=== PATIENT | female | born 1935 | race Hispanic/Latino ===

== ENCOUNTER 2017-02-27 11:25 | Emergency (ER) | payer BC, MEDICARE ==
[2017-02-27 11:26] VITALS: BMI 26.6
[2017-02-27 11:31] VITALS: TEMP 98.2
[2017-02-27] MEDS ORDERED: Tetanus/Diphtheria Toxoids 0.5 ml Syringe IM ONE (12:00)
[2017-02-27] MEDS ORDERED: Lidocaine 1%/Epinephrine 1:100000 30 ml vial INJ STA (12:02)
[2017-02-27] MEDS ORDERED: Lidocaine 2% w Epi 1:100,000 Inj IJ ONE (12:27)
--- NOTE | 2017-02-27 13:48 | CT ---
PROCEDURE: CT HEAD WITHOUT CONTRAST. HISTORY: HEAD TRAUMA S/P FALL COMPARISON: None available. TECHNIQUE: Axial computed tomography images were obtained through the head/brain without intravenous contrast. Radiation dose: Total exam DLP = 982.82 mGy-cm. This CT exam was performed using one or more of the following dose reduction techniques: Automated exposure control, adjustment of the mA and/or kV according to patient size, and/or use of iterative reconstruction technique. FINDINGS: HEMORRHAGE: No intracranial hemorrhage. BRAIN: Diffuse atrophy with prominence of the ventricles and sulci noted. No mass effect or edema. Scattered periventricular and subcortical white matter hypodensities, which are nonspecific, but often seen with chronic microvascular ischemic disease. Please note that MRI with diffusion imaging is more sensitive in the detection of acute ischemic event. VENTRICLES: No hydrocephalus. CALVARIUM: Unremarkable. PARANASAL SINUSES: Small fluid within the right sphenoid sinus. MASTOID AIR CELLS: Unremarkable as visualized. No inflammatory changes. OTHER FINDINGS: Large posterior scalp hematoma measuring approximately 1.6 x 7.0 cm. Subcutaneous emphysema and evidence of laceration evident at this level. More focal rounded heterogeneous region within the scalp hematoma measures approximately 1.2 x 1.4 cm on the left with evidence of fluid fluid level. IMPRESSION: Large posterior scalp hematoma measuring approximately 1.6 x 7.0 cm. Subcutaneous emphysema and evidence of laceration evident at this level. More focal rounded heterogeneous region within the scalp hematoma measures approximately 1.2 x 1.4 cm on the left with evidence of fluid fluid level. Generalized atrophy. Nonspecific white matter changes. Small fluid within the right sphenoid sinus ; correlate for sinusitis.
[2017-02-27] MEDS ORDERED: Bacitracin 500 Units/gm Oint Foilpak UD TOP ONE (14:32)
--- NOTE | 2017-02-27 14:32 | C.PDOC ---
History Of Present Illness 81 y/o female brought to ED via ambulance after patient tripped on a pipe in the sidewalk, and fell backwards, hitting the back of her head on the ground today. Pt sustained a laceration to the posterior aspect of the head. Denies LOC , dizziness, headache, neck pain, back pain, nausea, vomiting or visual changes. Pt is not up to date with Tetanus vaccination. Denies taking any blood thinners. - HPI Time Seen by Provider: 02/27/17 11:44 Chief Complaint (Nursing): Trauma History Per: Patient History/Exam Limitations: no limitations Onset/Duration Of Symptoms: Hrs Injury Occurred (Timing): Just Before Arrival Location Of Injury: Posterior: Head Additional History Per: Patient Past Medical History Reviewed: Historical Data, Nursing Documentation, Vital Signs Vital Signs: Last Vital Signs Temp 98.2 F 02/27/17 11:31 Pulse 91 H 02/27/17 14:50 Resp 18 02/27/17 14:50 BP 144/93 H 02/27/17 14:50 Pulse Ox 95 02/27/17 16:00 - Medical History PMH: HTN - [facility] Procedures OTHER SKIN & SUBQ I D (03/25/13) RADICAL EXCIS SKIN LES (03/25/13) SKIN REPAIR & PLASTY NEC (03/25/13) Family History: States: Unknown Family Hx - Social History Hx Alcohol Use: No Hx Substance Use: No Review Of Systems Except As Marked, All Systems Reviewed And Found Negative. Constitutional: Negative for: Fever, Chills Cardiovascular: Negative for: Chest Pain, Palpitations Respiratory: Negative for: Cough, Shortness of Breath Gastrointestinal: Negative for: Nausea, Vomiting, Abdominal Pain, Diarrhea Musculoskeletal: Negative for: Neck Pain, Back Pain Skin: Positive for: Other (laceration to posterior head) Neurological: Positive for: Other. Negative for: Weakness, Numbness, Headache, Dizziness Physical Exam - Physical Exam Appears: Non-toxic, No Acute Distress, Other (comfortable) Skin: Warm, Dry, No Rash Head: Atraumatic, Normacephalic, No Tenderness, Laceration (5cm of laceration to occipital scalp, with jagged edges at the inferior aspect, no foreign body, underlined hematoma) Eye(s): bilateral: Normal Inspection, PERRL, EOMI Oral Mucosa: Moist Neck: Normal ROM, No Midline Cervical Tenderness, No Paracervical Tenderness, Supple Chest: Symmetrical Cardiovascular: Rhythm Regular, No Murmur Respiratory: Normal Breath Sounds, No Rales, No Rhonchi, No Wheezing Gastrointestinal/Abdominal: Soft, No Tenderness Back: No CVA Tenderness, No Vertebral Tenderness, No Paraspinal Tenderness Extremity: Normal ROM, No Tenderness, No Pedal Edema, Capillary Refill (<2 sec.) , No Deformity, No Swelling (no swelling or tenderness to left elbow), Other ( abrasion to left elbow) Extremity: Bilateral: Atraumatic, Normal ROM Pulses: Left Radial: Normal, Right Radial: Normal Neurological/Psych: Oriented x3, Normal Speech, Normal Cognition, Normal Motor, Normal Sensation, No Other (no focal deficits) ED Course And Treatment O2 Sat by Pulse Oximetry: 95 (on RA) Pulse Ox Interpretation: Normal - Other Rad Left elbow x-ray X-Ray: Viewed By Me, Read By Radiologist Interpretation: Accession No. : [id number]. Patient Name / ID : JOSE LUIS HOBBS / [id number]. Exam Date : 02/27/2017 12:06:37 ( Approved ). Study Comment : Sex / Age : F / 81Y. Creator : YARED VALLEJO MD. Dictator : YARED VALLEJO MD. Sales Development Manager : County Program Technician : YARED VALLEJO MD. Approver2 : Report Date : 02/27/2017 15:42:11. My Comment : . PROCEDURE: Radiographs of the left elbow. HISTORY: left elbow inury s/p fall. COMPARISON: No prior. FINDINGS: BONES: Normal. No fracture. JOINTS: Normal. No osteoarthritis. SOFT TISSUES: Normal. JOINT EFFUSION: None. OTHER FINDINGS: None. IMPRESSION: Unremarkable radiographs of the left elbow. - CT Scan/US Head CT Other Rad Studies (CT/US): Read By Radiologist, Radiology Report Reviewed CT/US Interpretation: Accession No. : [id number]. Patient Name / ID : JOSE LUIS HOBBS / [id number]. Exam Date : 02/27/2017 13:01:31 ( Approved ). Study Comment : Sex / Age : F / 81Y. Creator : Radha Ybarra MD. Dictator : Sales Development Manager : County Program Technician : Radha Ybarra MD. Approver2 : Report Date : 02/27/2017 13:47:09. My Comment : . PROCEDURE: CT HEAD WITHOUT CONTRAST. HISTORY: HEAD TRAUMA S/P FALL. COMPARISON: None available. TECHNIQUE: Axial computed tomography images were obtained through the head/brain without intravenous contrast. Radiation dose: Total exam DLP = 982.82 mGy-cm. This CT exam was performed using one or more of the following dose reduction techniques: Automated exposure control, adjustment of the mA and/ or kV according to patient size, and/or use of iterative reconstruction technique. FINDINGS: HEMORRHAGE: No intracranial hemorrhage. BRAIN: Diffuse atrophy with prominence of the ventricles and sulci noted. No mass effect or edema. Scattered periventricular and subcortical white matter hypodensities, which are nonspecific, but often seen with chronic microvascular ischemic disease. Please note that MRI with diffusion imaging is more sensitive in the detection of acute ischemic event. VENTRICLES: No hydrocephalus. CALVARIUM: Unremarkable. PARANASAL SINUSES: Small fluid within the right sphenoid sinus. MASTOID AIR CELLS: Unremarkable as visualized. No inflammatory changes. OTHER FINDINGS: Large posterior scalp hematoma measuring approximately 1.6 x 7.0 cm. Subcutaneous emphysema and evidence of laceration evident at this level. More focal rounded heterogeneous region within the scalp hematoma measures approximately 1.2 x 1.4 cm on the left with evidence of fluid fluid level. IMPRESSION: Large posterior scalp hematoma measuring approximately 1.6 x 7.0 cm. Subcutaneous emphysema and evidence of laceration evident at this level. More focal rounded heterogeneous region within the scalp hematoma measures approximately 1.2 x 1.4 cm on the left with evidence of fluid fluid level. Generalized atrophy. Nonspecific white matter changes. Small fluid within the right sphenoid sinus ; correlate for sinusitis. Progress Note: Head CT, left elbow x-ray ordered and reviewed. Pt was given Motrin, and Tylenol for pain. Tetanus vaccination administered. Laceration was repaired. Wound was dressed with Bacitracin. Laceration - Laceration Repair 4CM Wound Length (In cm): 4CM SCALP Description Of Wound: Linear Wound Cleansed With: Sterile Saline Anesthesia: Lidocaine 1%, With Epi (4ML) Wound Examination: Irrigated With Saline, No FB With Wound Exploration Wound Closure: Story (11), Suture (3 - VICRYL 3.0 ) Suture Technique And Material Used: Interrupted Wound Complexity: Intermediate Disposition Counseled Patient/Family Regarding: Studies Performed, Diagnosis, Need For Followup, Rx Given - Disposition Referrals: Lizz Oconnell MD [Staff Provider] - Disposition: HOME/ ROUTINE Disposition Time: 14:35 Condition: STABLE Additional Instructions: FOLLOW UP WITH YOUR DOCTOR IN 1-2 DAYS STAPLE REMOVAL IN 7 DAYS RETURN TO ER IF YOU HAVE ANY CONCERNING SYMPTOMS Prescriptions: Acetaminophen [Tylenol 325mg tab] 650 mg PO Q6 PRN #30 tab PRN Reason: pain/fever Naproxen [Naprosyn Tab] 375 mg PO BID PRN #25 tab PRN Reason: pain Instructions: Laceration (ED), Head Injury (ED) Forms: [facility] (Lithuanian) Print Language: STATELESS - POA Present On Arrival: Falls Or Trauma - Clinical Impression Clinical Impression: Scalp laceration, Scalp hematoma, Closed head injury - Scribe Statement The provider has reviewed the documentation as recorded by the Jemimaibe Gerald Khan All medical record entries made by the Scribe were at my direction and personally dictated by me. I have reviewed the chart and agree that the record accurately reflects my personal performance of the history, physical exam, medical decision making, and the department course for this patient. I have also personally directed, reviewed, and agree with the discharge instructions and disposition.
[2017-02-27] MEDS ORDERED: Bacitracin 500 Units/gm Oint Foilpak UD ONE (14:41)
[2017-02-27 14:51] VITALS: BP 144/93; PULSE 91; RESP 18
[2017-02-27 15:41] VITALS: O2SAT 95
--- NOTE | 2017-02-27 15:43 | RAD ---
PROCEDURE: Radiographs of the left elbow. HISTORY: left elbow inury s/p fall COMPARISON: No prior. FINDINGS: BONES: Normal. No fracture. JOINTS: Normal. No osteoarthritis. SOFT TISSUES: Normal. JOINT EFFUSION: None. OTHER FINDINGS: None IMPRESSION: Unremarkable radiographs of the left elbow.
== END 2017-02-27 15:17 | disposition home or self-care (01) ==
LOC: C.ER 11:25
DX: S01.01XA Laceration without foreign body of scalp, initial encounter (principal); W01.0XXA Fall on same level from slipping, tripping and stumbling without subsequent striking against object, initial encounter; Y92.480 Sidewalk as the place of occurrence of the external cause

== ENCOUNTER 2017-03-05 09:19 | Emergency (ER) | payer MEDICARE ==
[2017-03-05 09:19] VITALS: BMI 26.6
[2017-03-05 09:30] VITALS: TEMP 97.9
[2017-03-05] MEDS ORDERED: Bacitracin 500 Units/gm Oint Foilpak UD ONE (10:10)
[2017-03-05 10:32] VITALS: BP 122/72; PULSE 75; RESP 18; O2SAT 98
--- NOTE | 2017-03-05 12:56 | C.PDOC ---
History Of Present Illness 81 yr old female presents to the ER for a wound check and possible staple removal. Patient reports she had the bill placed in her scalp 6 days ago. Denies active bleeding, drainage, vision changes, nausea, vomiting, neck pain, headache, weakness or numbness. Time Seen by Provider: 03/05/17 09:30 Chief Complaint (Nursing): Wound Check History Per: Patient History/Exam Limitations: no limitations Onset/Duration Of Symptoms: Days Ago (6) Current Symptoms Are (Timing): Still Present Past Medical History Reviewed: Historical Data, Nursing Documentation, Vital Signs Vital Signs: Last Vital Signs Temp 97.9 F 03/05/17 09:25 Pulse 75 03/05/17 10:31 Resp 18 03/05/17 10:31 BP 122/72 03/05/17 10:31 Pulse Ox 98 03/05/17 12:57 - Medical History PMH: HTN, Hypercholesterolemia - [facility] Procedures OTHER SKIN & SUBQ I D (03/25/13) RADICAL EXCIS SKIN LES (03/25/13) SKIN REPAIR & PLASTY NEC (03/25/13) Family History: States: No Known Family Hx - Social History Hx Alcohol Use: No Hx Substance Use: No - Immunization History Hx Tetanus Toxoid Vaccination: Yes Hx Influenza Vaccination: No Hx Pneumococcal Vaccination: No Review Of Systems Except As Marked, All Systems Reviewed And Found Negative. Eyes: Negative for: Vision Change Gastrointestinal: Negative for: Nausea, Vomiting Musculoskeletal: Negative for: Neck Pain Neurological: Negative for: Weakness, Numbness, Headache Physical Exam - Physical Exam Appears: Non-toxic, No Acute Distress Skin: Warm, Dry, Other (Wound on the scalp, covered in blood clots. Small hematoma noted. No drainage. ) Head: Atraumatic, Normacephalic Eye(s): bilateral: Normal Inspection, PERRL, EOMI Chest: Symmetrical, No Tenderness Cardiovascular: Rhythm Regular, No Murmur Respiratory: Normal Breath Sounds, No Rales, No Rhonchi, No Stridor, No Wheezing Neurological/Psych: Oriented x3, Normal Speech, Cerebellar Signs Gait: Steady ED Course And Treatment O2 Sat by Pulse Oximetry: 98 (RA) Pulse Ox Interpretation: Normal Progress Note: Patient instructed to retun to ED in 2 days to have bill removed. Disposition - Disposition Disposition: HOME/ ROUTINE Disposition Time: 10:00 Condition: GOOD Additional Instructions: Thank you for letting us take care of you today. Your provider was Dr. Ewing. You were treated for a wound check. The emergency medical care you received today was directed at your acute symptoms. If you were prescribed any medication, please fill it and take as directed. It may take several days for your symptoms to resolve. Return to the Emergency Department if your symptoms worsen, do not improve, or if you have any other problems. Please contact your doctor or call one of the physicians/clinics you have been referred to that are listed on the Patient Visit Information form that is included in your discharge packet. Bring any paperwork you were given at discharge with you along with any medications you are taking to your follow up visit. Our treatment cannot replace ongoing medical care by a primary care provider (PCP) outside of the emergency department. Thank you for allowing the [facility] team to be part of your care today. Follow up in the emergency room in 2 days for staple removal. Instructions: Staple Care (ED) - Clinical Impression Clinical Impression: Visit for wound check - Scribe Statement The provider has reviewed the documentation as recorded by the Elkin Jeronimo Provider Attestation: All medical record entries made by the Elkin were at my direction and personally dictated by me. I have reviewed the chart and agree that the record accurately reflects my personal performance of the history, physical exam, medical decision making, and the department course for this patient. I have also personally directed, reviewed, and agree with the discharge instructions and disposition.
== END 2017-03-05 10:32 | disposition home or self-care (01) ==
LOC: C.ER 09:19
DX: Z51.89 Encounter for other specified aftercare (principal)

== ENCOUNTER 2017-03-08 09:42 | Emergency (ER) | payer MEDICARE ==
[2017-03-08 09:42] VITALS: BMI 26.6
[2017-03-08 09:52] VITALS: BP 137/89; PULSE 85; RESP 16; TEMP 97.3; O2SAT 98
--- NOTE | 2017-03-08 13:36 | C.PDOC ---
History Of Present Illness 81 y/o female presents to ED for removal of bill to scalp applied on 02/27 s/ p tripping and [id number] on sidewalk. Patient denies active bleeding, new injury , headache or any other complaints at this time. Time Seen by Provider: 03/08/17 09:53 Chief Complaint (Nursing): Suture/Staple Removal History Per: Patient History/Exam Limitations: no limitations Onset/Duration Of Symptoms: Days Ago Current Symptoms Are (Timing): Still Present Past Medical History Reviewed: Historical Data, Nursing Documentation, Vital Signs Vital Signs: Last Vital Signs Temp 97.3 F L 03/08/17 09:50 Pulse 85 03/08/17 09:50 Resp 16 03/08/17 09:50 BP 137/89 03/08/17 09:50 Pulse Ox 98 03/08/17 13:40 - Medical History PMH: HTN, Hypercholesterolemia Surgical History: No Surg Hx - [facility] Procedures OTHER SKIN & SUBQ I D (03/25/13) RADICAL EXCIS SKIN LES (03/25/13) SKIN REPAIR & PLASTY NEC (03/25/13) Family History: States: No Known Family Hx - Social History Hx Alcohol Use: No Hx Substance Use: No - Immunization History Hx Tetanus Toxoid Vaccination: Yes Hx Influenza Vaccination: No Hx Pneumococcal Vaccination: No Review Of Systems Except As Marked, All Systems Reviewed And Found Negative. Constitutional: Negative for: Fever, Chills Eyes: Negative for: Vision Change Skin: Negative for: Rash Neurological: Negative for: Weakness, Numbness, Headache, Dizziness Physical Exam - Physical Exam Appears: Non-toxic, No Acute Distress Skin: Warm, Dry, No Rash Head: Normacephalic, Laceration (5cm healing lac to scalp with 11 bill applied) Eye(s): bilateral: Normal Inspection, PERRL, EOMI Oral Mucosa: Moist Neck: Normal ROM, Supple Extremity: Normal ROM, Capillary Refill (<2 seconds), No Deformity, No Swelling Pulses: Left Radial: Normal, Right Radial: Normal Neurological/Psych: Oriented x3, Normal Speech, Normal Cognition, Normal Motor, Normal Sensation ED Course And Treatment O2 Sat by Pulse Oximetry: 98 Progress Note: 11 bill removed from scalp, patient tolerated well. Patient discharged and advised to follow up with pmd Disposition - Disposition Disposition: HOME/ ROUTINE Disposition Time: 10:00 Condition: GOOD Additional Instructions: Thank you for letting us take care of you today. Your provider was Dr. Ewing. You were treated for staple removal. The emergency medical care you received today was directed at your acute symptoms. If you were prescribed any medication, please fill it and take as directed. It may take several days for your symptoms to resolve. Return to the Emergency Department if your symptoms worsen, do not improve, or if you have any other problems. Please contact your doctor or call one of the physicians/clinics you have been referred to that are listed on the Patient Visit Information form that is included in your discharge packet. Bring any paperwork you were given at discharge with you along with any medications you are taking to your follow up visit. Our treatment cannot replace ongoing medical care by a primary care provider (PCP) outside of the emergency department. Thank you for allowing the [facility] team to be part of your care today. Wash the area gently for the next couple of days. Return to the emergency room or your doctor if you have any concerns. Forms: [facility] (Nicaraguan) - Clinical Impression Clinical Impression: Removal of bill - Scribe Statement The provider has reviewed the documentation as recorded by the Scribe Rafael Ozuna All medical record entries made by the Elkin were at my direction and personally dictated by me. I have reviewed the chart and agree that the record accurately reflects my personal performance of the history, physical exam, medical decision making, and the department course for this patient. I have also personally directed, reviewed, and agree with the discharge instructions and disposition.
== END 2017-03-08 10:09 | disposition home or self-care (01) ==
LOC: C.ER 09:42
DX: Z48.02 Encounter for removal of sutures (principal)

== ENCOUNTER 2017-03-16 09:07 | Emergency (ER) | payer MEDICARE ==
[2017-03-16 09:07] VITALS: BMI 26.6
[2017-03-16 09:16] VITALS: TEMP 97.9
--- NOTE | 2017-03-16 09:36 | C.PDOC ---
History Of Present Illness 81 y/o female presents to ED with complaints of "I woke up with blood on the pillow" onset this morning. Patient was previously seen on 03/08 s/p staple remova; that was originally applied on 02/27. Patient denies pain, swelling or any other associated symptoms with wound since last ER evaluation. "I WOKE W BLOOD ON THE PILLOW" ONSET THIS MORNING. seen 03/08 s/p staple removal ORIGINALLY APPLIED on 02/27. PS HAS HAD NO PAIN, SWELLING OR OTHER ASSOC SX W WOUND SINCE LAST ER EVAL. DENIES OTHER ASSOC SX EXAM NAD HEENT HEALING POSTERIOR SCALP BRUISING, NONTEND. SKIN +OLD CLOTS EMBEDDED IN HAIR. NO ERYTHEMA, DC, ACTIVE BLEEDING. MDM ADVISED H2O2 FOR CLOT REMOVAL. AVOID EXCESSIVE TUGGING OR SCRUBBING TO AREA. Time Seen by Provider: 03/16/17 09:26 Chief Complaint (Nursing): Wound Check History Per: Patient History/Exam Limitations: no limitations Onset/Duration Of Symptoms: Days Ago Current Symptoms Are (Timing): Still Present Past Medical History Reviewed: Historical Data, Nursing Documentation, Vital Signs Vital Signs: Last Vital Signs Temp 97.9 F 03/16/17 09:09 Pulse 75 03/16/17 09:40 Resp 18 03/16/17 09:40 BP 146/78 03/16/17 09:40 Pulse Ox 97 03/16/17 09:41 - Medical History PMH: HTN, Hypercholesterolemia Surgical History: No Surg Hx - [facility] Procedures OTHER SKIN & SUBQ I D (03/25/13) RADICAL EXCIS SKIN LES (03/25/13) SKIN REPAIR & PLASTY NEC (03/25/13) Family History: States: No Known Family Hx - Social History Hx Alcohol Use: No Hx Substance Use: No - Immunization History Hx Tetanus Toxoid Vaccination: Yes Hx Influenza Vaccination: No Hx Pneumococcal Vaccination: No Review Of Systems Constitutional: Negative for: Fever, Chills Eyes: Negative for: Vision Change Skin: Negative for: Rash Neurological: Negative for: Weakness, Numbness, Headache, Dizziness Physical Exam - Physical Exam Appears: Non-toxic, No Acute Distress Skin: Warm, Dry, No Rash, Other (Old clots embedded in hair. No erythema, No discharge, No active bleeding) Head: No Tenderness, No Swelling, Other (Healing posterior scalp. Bruising. ) Eye(s): bilateral: Normal Inspection, EOMI Oral Mucosa: Moist Neck: Normal ROM, Supple Chest: Symmetrical Neurological/Psych: Oriented x3, Normal Speech, Normal Cognition, Normal Motor, Normal Sensation Gait: Steady ED Course And Treatment O2 Sat by Pulse Oximetry: 97 (RA) Pulse Ox Interpretation: Normal Medical Decision Making Medical Decision Making: Patient advised to use H2O2 for clot removal and avoid excessive tugging or scrubbing to area. Disposition Counseled Patient/Family Regarding: Diagnosis, Need For Followup - Disposition Referrals: YOUR,PMD [Other] Disposition: HOME/ ROUTINE Disposition Time: 09:36 Condition: IMPROVED Instructions: Chronic Wound Care (ED) Forms: [employer] (Arabic) - Clinical Impression Clinical Impression: Visit for wound check - Scribe Statement The provider has reviewed the documentation as recorded by the Scribalexandrea Ozuna All medical record entries made by the Jemimaibe were at my direction and personally dictated by me. I have reviewed the chart and agree that the record accurately reflects my personal performance of the history, physical exam, medical decision making, and the department course for this patient. I have also personally directed, reviewed, and agree with the discharge instructions and disposition.
[2017-03-16 09:41] VITALS: BP 146/78; PULSE 75; RESP 18
[2017-03-16 09:43] VITALS: O2SAT 97
== END 2017-03-16 09:41 | disposition home or self-care (01) ==
LOC: C.ER 09:07
DX: Z48.00 Encounter for change or removal of nonsurgical wound dressing (principal)

== ENCOUNTER 2018-05-16 12:08 | Inpatient (IN) | payer MEDICARE, OTHER ==
[2018-05-16 12:08] VITALS: BMI 26.6
[2018-05-16] MEDS ORDERED: Sodium Chloride 0.9% 1,000 ML IV STA (12:36)
[2018-05-16] MEDS ORDERED: Sodium Chloride 0.9% 1,000 ML ONE (12:48)
[2018-05-16 13:15] LABS: BASO # 0.1 K/uL (0.0-0.2); BASO % 0.5 % (0.0-2.0); EOS % 0.1 % (0.0-4.0); HEMOGLOBIN 14.4 g/dL (11.0-16.0); LYMPH # 0.8 K/uL (1.0-4.3); LYMPH % 7.5 % (20.0-40.0); MEAN CELL VOLUME 89.9 fL (81.0-99.0); MEAN CORPUSCULAR HEMOGLOBIN 30.5 pg (27.0-31.0); MEAN CORPUSCULAR HGB CONC 33.9 g/dL (33.0-37.0); MEAN PLATELET VOLUME 9.4 fL (7.2-11.7); MONO # 0.7 K/uL (0.0-0.8); NEUT # 9.6 K/uL (1.8-7.0); NEUT % 85.9 % (50.0-75.0); PLATELET COUNT 198 K/uL (130-400); RBC 4.73 Mil/uL (3.80-5.20); RED CELL DISTRIBUTION WIDTH 13.4 % (11.5-14.5); WHITE BLOOD COUNT 11.1 K/uL (4.8-10.8)
[2018-05-16 13:26] LABS: ALB/GLOB RATIO 1.3 (1.0-2.1); ALBUMIN 4.2 g/dL (3.5-5.0); CALCIUM 9.4 mg/dl (8.6-10.4)
[2018-05-16 13:49] LABS: EOSINOPHIL 1 % (0-4); LYMPHOCYTE 4 % (20-40); MONOCYTE 6 % (0-10); NEUTROPHIL 89 % (50-75); PLATELET ESTIMATE NORMAL (NORMAL); TOTAL CELLS COUNTED 100
[2018-05-16 14:03] LABS: SQUAMOUS EPITHIAL < 1 /hpf (0-5); URINE BACTERIA RARE (<OCC); URINE BILIRUBIN NEGATIVE (NEGATIVE); URINE BLOOD NEGATIVE (NEGATIVE); URINE CLARITY Clear (Clear); URINE COLOR Yellow (YELLOW); URINE GLUCOSE (UA) NORMAL (Normal); URINE LEUKOCYTE ESTERASE TRACE Leu/uL (Negative); URINE PROTEIN 2+ mg/dL (NEGATIVE); URINE UROBILINOGEN NORMAL mg/dL (0.2-1.0)
[2018-05-16] MEDS ORDERED: Iodixanol 320 MG/ML 100 ML BOTTLE IV ONE (14:31)
--- NOTE | 2018-05-16 14:53 | C.PDOC ---
History Of Present Illness 82 y/o female, with past surgical history of hernia repair, presents to the ER complaining of diffuse abdominal pain which has been present since last night. Patient describes the pain as cramping with gas. Patient reports bilious vo miting and increased burping. She notes that she has constipation. Denies having fever, chills, CP, SOB, back pain, dysuria, and hematuria. Time Seen by Provider: 05/16/18 12:26 Chief Complaint (Nursing): Abdominal Pain History Per: Patient History/Exam Limitations: no limitations Onset/Duration Of Symptoms: Days Current Symptoms Are (Timing): Still Present Severity: Moderate Past Medical History Reviewed: Historical Data, Nursing Documentation, Vital Signs Vital Signs: Last Vital Signs Temp 98 F 05/16/18 12:10 Pulse 113 H 05/16/18 12:10 Resp 18 05/16/18 12:10 BP 121/88 05/16/18 12:10 Pulse Ox 95 05/16/18 12:10 - Medical History PMH: HTN, Hypercholesterolemia, Hypothyroidism Surgical History: No Surg Hx - [facility] Procedures OTHER SKIN & SUBQ I D (03/25/13) RADICAL EXCIS SKIN LES (03/25/13) SKIN REPAIR & PLASTY NEC (03/25/13) Family History: States: No Known Family Hx - Social History Hx Alcohol Use: No Hx Substance Use: No - Immunization History Hx Tetanus Toxoid Vaccination: Yes Hx Influenza Vaccination: Yes Hx Pneumococcal Vaccination: No Review Of Systems Except As Marked, All Systems Reviewed And Found Negative. Constitutional: Negative for: Fever, Chills Cardiovascular: Negative for: Chest Pain Respiratory: Negative for: Shortness of Breath Gastrointestinal: Positive for: Vomiting, Abdominal Pain, Constipation Genitourinary: Negative for: Dysuria, Hematuria Musculoskeletal: Negative for: Back Pain Physical Exam - Physical Exam Additional Physical Exam Comments: Constitutional: No acute distress. Head: Normocephalic. Atraumatic. Eyes: PERRL. ENT: Moist mucous membranes. Neck: Supple. Cardiovascular: Regular rate. Radial pulse 2+ bilaterally. Chest: No tenderness. Respiratory: Clear to auscultation bilaterally. GI: Soft. Nontender. Nondistended. Back: No CVA tenderness. Musculoskeletal: No tenderness or swelling of extremities. Skin: No rash. Neurologic: Alert, no focal deficit. ED Course And Treatment - Laboratory Results Result Diagrams: 05/16/18 13:05 05/16/18 13:05 O2 Sat by Pulse Oximetry: 95 Medical Decision Making Medical Decision Making: Plan: --Labs --UA --CT-Abd & Pelv. --Zofran IV --IV Fluids CT-Abd & Pelv. Results IMPRESSION: Evidence of small-bowel obstruction as above. Complex appearing right adnexal cystic lesions presumed related to the ovary. Recommend pelvic ultrasound for further evaluation. Extensive diverticulosis, particularly the sigmoid colon. No CT evidence of acute diverticulitis. 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 Small perihepatic ascites. The gallbladder appears distended. Correlate clinically. Right upper quadrant ultrasound may be considered if indicated. Atrophic right kidney with severe hydronephrosis. Too small to characterize left renal hypodensities; statistically likely cysts. Additional findings as above. Emergent findings discussed with Dr. Abreu on 05/16/18 at 3:[address] Keenan accepts patient to hospitalist service. Dr. Khan surgical consult, residents evaluating patient at bedside. Disposition - Disposition Disposition: HOSPITALIZED Disposition Time: 16:06 Condition: GUARDED - Clinical Impression Clinical Impression: Small bowel obstruction - Scribe Statement The provider has reviewed the documentation as recorded by the Jemimaibalexandrea Hankins Provider Attestation: All medical record entries made by the Jeimmaibe were at my direction and personally dictated by me. I have reviewed the chart and agree that the record accurately reflects my personal performance of the history, physical exam, medical decision making, and the department course for this patient. I have also personally directed, reviewed, and agree with the discharge instructions and disposition.
[2018-05-16 15:25] VITALS: RESP 20
--- NOTE | 2018-05-16 16:09 | CT ---
Date of service: 05/16/2018 PROCEDURE: CT Abdomen and Pelvis with contrast HISTORY: abd pain, constipation, vomiting, h/o Sx COMPARISON: None available. TECHNIQUE: Contrast dose: 100 mL Visipaque 320 IV Radiation dose: Total exam DLP = 1032.34 mGy-cm. This CT exam was performed using one or more of the following dose reduction techniques: Automated exposure control, adjustment of the mA and/or kV according to patient size, and/or use of iterative reconstruction technique. FINDINGS: LOWER THORAX: Bibasilar atelectasis. No visible pleural effusion or pneumothorax. LIVER: Hypoattenuation of the liver compatible with hepatic steatosis. Small perihepatic ascites. GALLBLADDER AND BILE DUCTS: Distended. PANCREAS: Atrophy. SPLEEN: 11 mm probable splenule. Otherwise unremarkable. ADRENALS: Mild bilateral adrenal gland hypertrophy. KIDNEYS AND URETERS: Atrophic right kidney with severe hydronephrosis. Too small to characterize left renal hypodensities; statistically likely cysts. VASCULATURE: Bilobed aneurysmal dilatation of the infrarenal abdominal aorta measuring approximately 2.9 x 2.8 x 2.9 cm and 3.0 x 3.1 x 4.0 cm (AP by transverse by cc dimensions) more inferiorly. Atherosclerotic calcifications/mural plaque present. BOWEL: Stomach is nondistended. Lack of oral contrast limits evaluation for bowel pathology. Dilated small bowel loops within the left abdomen with distal decompressed small bowel loops; appearance consistent with small bowel obstruction.. Extensive diverticulosis particularly the sigmoid colon. No CT evidence of acute diverticulitis. APPENDIX: The appendix appears within normal limits of caliber. No secondary signs of acute appendicitis. PERITONEUM: No significant free fluid. No definite free air. LYMPH NODES: No bulky adenopathy identified. BLADDER: Unremarkable. REPRODUCTIVE: Uterus is present and appears atrophic. Complex right adnexal cysts presumed related to the ovary. Pessary. BONES: Osseous demineralization. Degenerative changes of the spine. Grade 1 retrolisthesis of L3 on L4. OTHER FINDINGS: Fat and fluid within a right inguinal hernia. Fat containing left inguinal hernia. IMPRESSION: Evidence of small-bowel obstruction as above. Complex appearing right adnexal cystic lesions presumed related to the ovary. Recommend pelvic ultrasound for further evaluation. Extensive diverticulosis, particularly the sigmoid colon. No CT evidence of acute diverticulitis. 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 Small perihepatic ascites. The gallbladder appears distended. Correlate clinically. Right upper quadrant ultrasound may be considered if indicated. Atrophic right kidney with severe hydronephrosis. Too small to characterize left renal hypodensities; statistically likely cysts. Additional findings as above. Emergent findings discussed with Dr. Abreu on 05/16/18 at 3:43 p.m.
--- NOTE | 2018-05-16 16:45 | CP.PCM.CON ---
History of Present Illness - History of Present Illness History of Present Illness: Surgery Consult note. Dr. Khan service 82yo F with PMHx of HTN, HLD, [place] in , Hypothyroidism here for evaluation of nausea and vomiting. Patient states that she last ate yesterday night, tuna and crackers. A few hours after, she felt nauseous and had two episodes of emesis, non-bilious non-bloody. She woke up this morning and again had one episode of nausea and vomiting. She denies any abdominal pain or discomfort. She denies any CP, SOB. No fevers or chills. She does state that she has been drinking water today after the episode of vomiting this morning and has not had any problems with tolerance. She has been passing gas. She normally has a BM every two to three days and is unsure when her last BM was but says it may have been yesterday. Denies any rectal bleeding or melena. In the ED, CT abd/pelvis performed with evidence of possible SBO. Surgery consult obtained. PMHx: HTN, HLD, [place] in , Hypothyroid PSHx: Right inguinal hernia. Right groin abscess I&D in 2012 Family Hx: non-contributory Social Hx: denies Tob. Denies ETOH. Denies illicit drugs NKDA Review of Systems - Review of Systems All systems: reviewed and no additional remarkable complaints except - Constitutional Constitutional: absent: Chills, Fever - EENT Eyes: absent: Blurred Vision Ears: absent: Ear Discharge Nose/Mouth/Throat: absent: Nasal Congestion - Cardiovascular Cardiovascular: absent: Chest Pain - Respiratory Respiratory: absent: Cough, Dyspnea - Gastrointestinal Gastrointestinal: Belching, Nausea, Vomiting. absent: Abdominal Pain, Diarrhea, Dyspepsia, Melena - Genitourinary Genitourinary: absent: Dysuria - Musculoskeletal Musculoskeletal: absent: Back Pain - Neurological Neurological: absent: Dizziness, Headaches Past Patient History - Infectious Disease Hx of Infectious Diseases: None - Past Social History Smoking Status: Never Smoked Alcohol: None Drugs: Denies - CARDIAC Hx Hypercholesterolemia: Yes Hx Hypertension: Yes - ENDOCRINE/METABOLIC Hx Hypothyroidism: Yes - PSYCHIATRIC Hx Substance Use: No - SURGICAL HISTORY Hx Angioplasty: Yes - ANESTHESIA Hx Anesthesia: Yes Hx Anesthesia Reactions: No Meds Allergies/Adverse Reactions: Allergies Allergy/AdvReac Type Severity Reaction Status Date / Time No Known Allergies Allergy Verified 10/17/18 12:45 Physical Exam - Constitutional Appears: Well, Non-toxic, No Acute Distress - Head Exam Head Exam: ATRAUMATIC, NORMAL INSPECTION, NORMOCEPHALIC - Eye Exam Eye Exam: EOMI, Normal appearance - ENT Exam ENT Exam: Mucous Membranes Moist - Respiratory Exam Respiratory Exam: NORMAL BREATHING PATTERN. absent: Accessory Muscle Use, Respiratory Distress - Cardiovascular Exam Cardiovascular Exam: absent: JVD - GI/Abdominal Exam GI & Abdominal Exam: Soft. absent: Distended, Firm, Guarding, Rebound, Rigid, Tenderness - Extremities Exam Extremities exam: Positive for: normal inspection. Negative for: calf tenderness - Neurological Exam Neurological exam: Alert, Oriented x3 - Psychiatric Exam Psychiatric exam: Normal Affect, Normal Mood - Skin Skin Exam: Dry, Intact, Normal Color, Warm Results - Vital Signs Recent Vital Signs: Last Vital Signs Temp 98.2 F 05/16/18 15:24 Pulse 82 05/16/18 15:24 Resp 20 05/16/18 15:24 BP 132/84 05/16/18 15:24 Pulse Ox 95 05/16/18 16:17 - Labs Result Diagrams: 05/16/18 13:05 05/16/18 13:05 Labs: Laboratory Results - last 24 hr 05/16/18 05/16/18 05/16/18 13:05 13:05 13:52 WBC 11.1 H D RBC 4.73 Hgb 14.4 Hct 42.5 MCV 89.9 MCH 30.5 MCHC 33.9 RDW 13.4 Plt Count 198 MPV 9.4 Neut % (Auto) 85.9 H Lymph % (Auto) 7.5 L [place] % (Auto) 6.0 Eos % (Auto) 0.1 Baso % (Auto) 0.5 Neut # (Auto) 9.6 H Lymph # (Auto) 0.8 L [place] # (Auto) 0.7 Eos # (Auto) 0.0 Baso # (Auto) 0.1 Neutrophils % (Manual) 89 H Lymphocytes % (Manual) 4 L Monocytes % (Manual) 6 Eosinophils % (Manual) 1 Platelet Estimate Normal RBC Morphology Normal Sodium 132 Potassium 4.2 Chloride 91 L Carbon Dioxide 29 Anion Gap 17 BUN 20 H Creatinine 1.2 Est GFR ( Amer) 52 Est GFR (Non-Af Amer) 43 Random Glucose 150 H Calcium 9.4 Total Bilirubin 1.0 AST 38 H ALT 46 Alkaline Phosphatase 76 Total Protein 7.6 Albumin 4.2 Globulin 3.4 Albumin/Globulin Ratio 1.3 Lipase 72 Urine Color Yellow Urine Clarity Clear Urine pH 6.0 Ur Specific [place] 1.009 Urine Protein 2+ H Urine Glucose (UA) Normal Urine Ketones Negative Urine Blood Negative Urine Nitrate Negative Urine Bilirubin Negative Urine Urobilinogen Normal Ur Leukocyte Esterase Trace Urine WBC (Auto) 3 Urine RBC (Auto) 1 Ur Squamous Epith Cells < 1 Urine Bacteria Rare Assessment & Plan - Assessment and Plan (Free Text) Assessment: 82yo F with possible SBO Plan: - NPO - IVF - Will need NGT for decompression if patient still has more episodes of nausea or vomiting - Glycerin supp for constipation Further recs as per Dr. Heather Bailey PGY2 surgery
[2018-05-16] MEDS: Sodium Chloride 0.9% 1,000 ML IV SCH (17:04)
--- NOTE | 2018-05-16 17:11 | CP.PCM.HP ---
<Lashay Bender - Last Filed: 05/16/18 19:14> History of Present Illness - History of Present Illness History of Present Illness: PGY-1 Lashay Bender, Denise&P for Dr. Keenan's service: Patient is an 82 yo female with a history of HTN, HLD, GERD, and [place] in 1992 who presents with vomiting and belching. Patient states that she started vomiting last night. She vomited a total of 4 times, last time this morning. It was non- bloody. She denies being around sick contacts or doing/eating anything unusual yesterday. She took Pepto-Bismol with minimal relief. She ate tuna and crackers after onset of vomiting but then subsequently vomited afterwards. Patient has not eaten since last night, and she did not take her medications this morning. Patient also complains of constipation. She states she usually does not have a BM daily, but her constipation has been somewhat worse over the last 2 days. She took Colace without relief. She also describes an acid feeling in her throat and the urge to belch. She is also passing a lot of gas. She denies chest pain, shortness of breath, abdominal pain, recent weight change. She has never had a colonoscopy. PMH: HTN HLD GERD [place] in 1992- angioplasty Hernia repair years ago Meds: Atorvastatin 40 mg PO daily Losartan 100 mg PO daily Amlodipine 5 mg PO daily Ativan 1 mg PO QHS All: NKA FH: Denies any history of cancer, heart disease, diabetes SH: Lives with son Occasional alcohol use Former smoker- approximately 35 pack years, quit 30 yrs ago Denies illicit drug use PMD: Anish Psych: Anaya Present on Admission - Present on Admission Any Indicators Present on Admission: No History of DVT/PE: No History of Uncontrolled Diabetes: No Urinary Catheter: No Decubitus Ulcer Present: No History Surgical Site Infection Following: None Review of Systems - Constitutional Constitutional: absent: Chills, Fever, Headache, Night Sweats, Weight Gain, Weight Loss - EENT Eyes: absent: Change in Vision Ears: absent: Decreased Hearing Nose/Mouth/Throat: absent: Nasal Congestion - Cardiovascular Cardiovascular: Pedal Edema (chronic). absent: Chest Pain, Diaphoresis, Dyspnea, Palpitations - Respiratory Respiratory: absent: Cough, Dyspnea Past Patient History - Infectious Disease Hx of Infectious Diseases: None - Tetanus Immunizations Tetanus Immunization: Unknown - Past Medical History & Family History Past Medical History?: Yes Past Family History: Reviewed and not pertinent - Past Social History Smoking Status: Former Smoker Chewing Tobacco Use: No Cigar Use: No Alcohol: Occasional Drugs: Denies Home Situation {Lives}: With Family (son) - CARDIAC Hx Cardiac Disorders: Yes Hx Heart Attack: Yes (1993, angioplasty) Hx Hypercholesterolemia: Yes Hx Hypertension: Yes - PULMONARY Hx Respiratory Disorders: No - NEUROLOGICAL Hx Neurological Disorder: No - HEENT Hx HEENT Problems: No - RENAL Hx Chronic Kidney Disease: No - ENDOCRINE/METABOLIC Hx Hypothyroidism: Yes - PSYCHIATRIC Hx Substance Use: No - SURGICAL HISTORY Hx Angioplasty: Yes - ANESTHESIA Hx Anesthesia: Yes Hx Anesthesia Reactions: No Meds Allergies/Adverse Reactions: Allergies Allergy/AdvReac Type Severity Reaction Status Date / Time No Known Allergies Allergy Verified 03/21/18 12:45 Physical Exam - Constitutional Appears: Non-toxic, No Acute Distress - Head Exam Head Exam: ATRAUMATIC, NORMAL INSPECTION - Eye Exam Eye Exam: EOMI, Normal appearance, PERRL - ENT Exam ENT Exam: Mucous Membranes Moist, Normal Exam - Neck Exam Neck exam: Positive for: Normal Inspection - Respiratory Exam Respiratory Exam: Clear to Auscultation Bilateral, NORMAL BREATHING PATTERN. absent: Accessory Muscle Use, Wheezes, Respiratory Distress - Cardiovascular Exam Cardiovascular Exam: REGULAR RHYTHM, +S1, +S2. absent: Systolic Murmur - GI/Abdominal Exam GI & Abdominal Exam: Normal Bowel Sounds, Soft, Tenderness (very mild epigastric). absent: Distended, Firm, Guarding, Mass, Rebound, Rigid - Rectal Exam Rectal Exam: Deferred - Extremities Exam Extremities exam: Positive for: normal capillary refill, pedal edema (1+ b/l), pedal pulses present. Negative for: tenderness - Back Exam Back exam: NORMAL INSPECTION. absent: CVA tenderness (L), CVA tenderness (R) - Neurological Exam Neurological exam: Alert, CN II-XII Intact, Oriented x3 - Psychiatric Exam Psychiatric exam: Normal Affect, Normal Mood - Skin Skin Exam: Dry, Intact, Normal Color, Warm Results - Vital Signs Recent Vital Signs: Last Vital Signs Temp 98.2 F 05/16/18 15:24 Pulse 82 05/16/18 15:24 Resp 20 05/16/18 15:24 BP 132/84 05/16/18 15:24 Pulse Ox 95 05/16/18 16:17 - Labs Result Diagrams: 05/16/18 13:05 05/16/18 13:05 Labs: Laboratory Results - last 24 hr 05/16/18 05/16/18 05/16/18 13:05 13:05 13:52 WBC 11.1 H D RBC 4.73 Hgb 14.4 Hct 42.5 MCV 89.9 MCH 30.5 MCHC 33.9 RDW 13.4 Plt Count 198 MPV 9.4 Neut % (Auto) 85.9 H Lymph % (Auto) 7.5 L [place] % (Auto) 6.0 Eos % (Auto) 0.1 Baso % (Auto) 0.5 Neut # (Auto) 9.6 H Lymph # (Auto) 0.8 L [place] # (Auto) 0.7 Eos # (Auto) 0.0 Baso # (Auto) 0.1 Neutrophils % (Manual) 89 H Lymphocytes % (Manual) 4 L Monocytes % (Manual) 6 Eosinophils % (Manual) 1 Platelet Estimate Normal RBC Morphology Normal Sodium 132 Potassium 4.2 Chloride 91 L Carbon Dioxide 29 Anion Gap 17 BUN 20 H Creatinine 1.2 Est GFR ( Amer) 52 Est GFR (Non-Af Amer) 43 Random Glucose 150 H Calcium 9.4 Total Bilirubin 1.0 AST 38 H ALT 46 Alkaline Phosphatase 76 Total Protein 7.6 Albumin 4.2 Globulin 3.4 Albumin/Globulin Ratio 1.3 Lipase 72 Urine Color Yellow Urine Clarity Clear Urine pH 6.0 Ur Specific [place] 1.009 Urine Protein 2+ H Urine Glucose (UA) Normal Urine Ketones Negative Urine Blood Negative Urine Nitrate Negative Urine Bilirubin Negative Urine Urobilinogen Normal Ur Leukocyte Esterase Trace Urine WBC (Auto) 3 Urine RBC (Auto) 1 Ur Squamous Epith Cells < 1 Urine Bacteria Rare Assessment & Plan - Assessment and Plan (Free Text) Assessment: Patient is an 82 yo female who presented with nonbloody vomiting x4. She is complaining of acid reflux and constipation. Questionable SBO on initial CT. Plan: Vomiting- r/o SBO - Afebrile - Mild leukocytosis (11.1) - Lipase 72 - CT A/P with IV contrast: Dialted loops of small bowel within L abdomen with distal decompressed small bowel loops consistent with SBO. Extensive diverticulosis but no acute diverticulitis. - CT A/P with PO contrast pening - EKG pending - SHEILA pending - NPO - Zofran 4 mg IV Q6H PRN - NS @ 100 mL/hr - Surgery consulted (Yuli Khan)- no NGT at this time Constipation - Pending CT with PO contrast - Consider enema if no SBO Ovarian cyst - CT A/P with IV contrast: Complex R adnexal cysts presumed related to the ovary - Pelvic u/s pending Hypertension - Monitor vitals Q4H - Hold losartan and amlodipine while NPO Hyperlipidemia - Hold atorvastatin while NPO GERD - Do not lay down for at least 30 minutes after eating - Elevate head of bed 30 degrees - Protonix 40 mg IV daily Anxiety - Ativan 0.5 mg IV TID PRN H/o myocardial infarction- angioplasty 1992 - SHEILA - EKG Ppx: VTE: SCDs GI: PTX 40 IV daily Code status: full code Case was discussed with attending, Dr. Keenan. <Jeffrey Keenan - Last Filed: 05/17/18 07:46> Results - Vital Signs Recent Vital Signs: Last Vital Signs Temp 98.9 F 05/16/18 23:15 Pulse 75 05/16/18 23:15 Resp 20 05/16/18 23:15 BP 151/87 H 05/16/18 23:15 Pulse Ox 97 05/16/18 23:15 - Labs Result Diagrams: 05/16/18 13:05 05/16/18 13:05 Labs: Laboratory Results - last 24 hr 05/16/18 05/16/18 05/16/18 13:05 13:05 13:52 WBC 11.1 H D RBC 4.73 Hgb 14.4 Hct 42.5 MCV 89.9 MCH 30.5 MCHC 33.9 RDW 13.4 Plt Count 198 MPV 9.4 Neut % (Auto) 85.9 H Lymph % (Auto) 7.5 L [place] % (Auto) 6.0 Eos % (Auto) 0.1 Baso % (Auto) 0.5 Neut # (Auto) 9.6 H Lymph # (Auto) 0.8 L [place] # (Auto) 0.7 Eos # (Auto) 0.0 Baso # (Auto) 0.1 Neutrophils % (Manual) 89 H Lymphocytes % (Manual) 4 L Monocytes % (Manual) 6 Eosinophils % (Manual) 1 Platelet Estimate Normal RBC Morphology Normal Sodium 132 Potassium 4.2 Chloride 91 L Carbon Dioxide 29 Anion Gap 17 BUN 20 H Creatinine 1.2 Est GFR ( Amer) 52 Est GFR (Non-Af Amer) 43 Random Glucose 150 H Calcium 9.4 Total Bilirubin 1.0 AST 38 H ALT 46 Alkaline Phosphatase 76 Total Creatine Kinase CK-MB (Mass) Troponin I Total Protein 7.6 Albumin 4.2 Globulin 3.4 Albumin/Globulin Ratio 1.3 Lipase 72 Urine Color Yellow Urine Clarity Clear Urine pH 6.0 Ur Specific [place] 1.009 Urine Protein 2+ H Urine Glucose (UA) Normal Urine Ketones Negative Urine Blood Negative Urine Nitrate Negative Urine Bilirubin Negative Urine Urobilinogen Normal Ur Leukocyte Esterase Trace Urine WBC (Auto) 3 Urine RBC (Auto) 1 Ur Squamous Epith Cells < 1 Urine Bacteria Rare 05/16/18 22:32 WBC RBC Hgb Hct MCV MCH MCHC RDW Plt Count MPV Neut % (Auto) Lymph % (Auto) [place] % (Auto) Eos % (Auto) Baso % (Auto) Neut # (Auto) Lymph # (Auto) [place] # (Auto) Eos # (Auto) Baso # (Auto) Neutrophils % (Manual) Lymphocytes % (Manual) Monocytes % (Manual) Eosinophils % (Manual) Platelet Estimate RBC Morphology Sodium Potassium Chloride Carbon Dioxide Anion Gap BUN Creatinine Est GFR ( Amer) Est GFR (Non-Af Amer) Random Glucose Calcium Total Bilirubin AST ALT Alkaline Phosphatase Total Creatine Kinase 49 CK-MB (Mass) 1.48 Troponin I < 0.0120 Total Protein Albumin Globulin Albumin/Globulin Ratio Lipase Urine Color Urine Clarity Urine pH Ur Specific [place] Urine Protein Urine Glucose (UA) Urine Ketones Urine Blood Urine Nitrate Urine Bilirubin Urine Urobilinogen Ur Leukocyte Esterase Urine WBC (Auto) Urine RBC (Auto) Ur Squamous Epith Cells Urine Bacteria Attending/Attestation - Attestation I have personally seen and examined this patient.: Yes I have fully participated in the care of the patient.: Yes I have reviewed all pertinent clinical information: Yes Notes (Text): 05/17/18 07:40 Medical attending: Patient was seen and examined by me. Agree with the above note by the resident. I saw the patient last night at about 8pm with the medical claims assistant while patient was in the ER. The patient was with family member at bedside and participated with discussion, patient was ok with family at bedside. The intial CT scan suggested that she had an SBO and was evaluated by surgery team before we arrived. There was some question with micheles if she really had an SBO or not since she appeared very comfortable. She reported she did not come in because of pain, but because of nausea, bloating, and constipation. She remarks that she had not had a BM in a few days The first CT scan showed a lot of stool retention. On exam she is not guarding, no rebound. We repeated CT with PO contrast and this confirmed there was an SBO. She later had a BM overnight with the help of enema. She is currently NPO and IVF. She does not take any pain medication which may cause constipation and slow GI motility She also very firmly does not want to have colonscopy or EGD. She has never had one she says and does not plan on getting one any time soon she says Patient will be monitored in case there are any changes. Jeffrey Keenan
[2018-05-16] MEDS ORDERED: Sodium Chloride 0.9% 1,000 ML IV SCH (18:30)
[2018-05-16] MEDS ORDERED: Iohexol 240 (50 ml) PO ONE (19:15)
[2018-05-17 00:09] LABS: CK-MB 1.48 ng/mL (0.0-3.38)
[2018-05-17] MEDS: Sodium Chloride 0.9% 1,000 ML IV SCH ×2 (02:53→12:30)
[2018-05-17 08:04] LABS: BASO % 0.6 % (0.0-2.0); EOS # 0.1 K/uL (0.0-0.7); EOS % 0.7 % (0.0-4.0); LYMPH # 1.4 K/uL (1.0-4.3); LYMPH % 17.8 % (20.0-40.0); MEAN CELL VOLUME 91.8 fL (81.0-99.0); MEAN CORPUSCULAR HEMOGLOBIN 31.8 pg (27.0-31.0); MEAN CORPUSCULAR HGB CONC 34.7 g/dL (33.0-37.0); MEAN PLATELET VOLUME 8.8 fL (7.2-11.7); MONO # 0.7 K/uL (0.0-0.8); MONO % 8.7 % (0.0-10.0); NEUT # 5.7 K/uL (1.8-7.0); NEUT % 72.2 % (50.0-75.0); RBC 3.82 Mil/uL (3.80-5.20); RED CELL DISTRIBUTION WIDTH 13.4 % (11.5-14.5); WHITE BLOOD COUNT 7.9 K/uL (4.8-10.8)
[2018-05-17 08:07] LABS: HEMOGLOBIN 12.2 g/dL (11.0-16.0)
[2018-05-17 08:20] LABS: ALB/GLOB RATIO 1.1 (1.0-2.1); ALBUMIN 3.1 g/dL (3.5-5.0); BLOOD UREA NITROGEN 13 mg/dL (7-17); CALCIUM 8.2 mg/dl (8.6-10.4); GFR NON-AFRICAN AMERICAN 60
[2018-05-17 08:21] LABS: ALT/SGPT 44 U/L (9-52); AST/SGOT 26 U/L (14-36)
[2018-05-17] MEDS ORDERED: POLYETHYLENE GLYCOL 3350 17 GM/Dose PACKET PO ONE ×2 (10:45→14:00)
--- NOTE | 2018-05-17 10:50 | CARD ---
APPROVED REPORT Date of service: 05/16/2018 EKG Measurement Heart [id number] <Conclusion> Normal sinus rhythm Left axis deviation Incomplete right bundle branch block Cannot rule out Anteroseptal infarct, age undetermined Abnormal ECG
--- NOTE | 2018-05-17 12:06 | US ---
Pelvic ultrasound History: Ovarian cyst. Comparison: None available. Technique: Real-time sonography was performed through the pelvis utilizing transabdominal technique. Findings: Uterus: 5.6 x 2.7 x 4.5 centimeters. Heterogeneous echotexture. Anteverted. Thickened and heterogeneous endometrium measuring up to 7.7 millimeters. No free fluid in the pelvic cul-de-sac. Right ovary: 6.5 x 4.3 x 5.6 centimeters. Normal flow. Complex multi septated and nodular right ovarian cyst measuring 4.9 x 4.2 x 4.7 centimeters. Left ovary: Not well visualized. Please note the patient refused transvaginal study. Impression: Somewhat limited study. Patient refused transvaginal technique. Complex multiseptated nodular and irregular shaped right ovarian cyst measuring 4.9 x 4.2 x 4.7 centimeters. Continued interval follow-up of this cyst and or correlation with pelvic MRI may be helpful if clinically indicated. Clinical correlation. Left ovary not well visualized. Thickened and heterogeneous endometrium measuring up to 7.7 millimeters. Clinical correlation.
--- NOTE | 2018-05-17 13:58 | CT ---
PROCEDURE: CT Abdomen and Pelvis without IV contrast. HISTORY: r/o SBO COMPARISON: CT abdomen and pelvis with IV contrast performed 05/16/18 TECHNIQUE: Contiguous axial images of the abdomen and pelvis. Oral contrast was administered. No IV contrast given. Coronal and Sagittal reformats generated and reviewed. Radiation dose: Total exam DLP = 886.94 mGy-cm. This CT exam was performed using one or more of the following dose reduction techniques: Automated exposure control, adjustment of the mA and/or kV according to patient size, and/or use of iterative reconstruction technique. FINDINGS: There is limited evaluation of the solid organs without the administration of IV contrast. LOWER THORAX: Bibasilar atelectasis. No visible pleural effusion or pneumothorax. Visualized portions of the heart appear within normal limits of size. LIVER: Hypoattenuation of the liver compatible with hepatic steatosis. GALLBLADDER AND BILE DUCTS: Unremarkable. PANCREAS: Atrophy. SPLEEN: 10 mm probable splenule. Otherwise unremarkable. ADRENALS: Bilateral adrenal gland hypertrophy. KIDNEYS AND URETERS: Stable appearance with numerous cysts/hydronephrosis of the right kidney. Right renal atrophy. Several small cortical cysts, left kidney. Nonobstructing 2 mm left renal calculus. Retained contrast left renal collecting system. BLADDER: Stable. REPRODUCTIVE: Atrophic uterus. Pessary. Complex right adnexal cyst, presumably ovarian. APPENDIX: No secondary signs of acute appendicitis. BOWEL: The stomach is nondistended. Dilated small bowel loops predominantly involving small bowel in the right lower quadrant with suspected transition point at the terminal ileum. Oral contrast is not seen within the large bowel. Appearance suspicious for small bowel obstruction. Diverticulosis without CT evidence of acute diverticulitis. PERITONEUM: No significant pelvic free fluid. No definite free air. LYMPH NODES: No bulky lymphadenopathy identified. 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 Atherosclerotic calcifications/mural plaque. BONES: Degenerative changes of the spine. OTHER FINDINGS: Small bilateral fat containing inguinal hernias. IMPRESSION: Findings consistent with small bowel obstruction as above. Additional findings as above. Preliminary impression was provided by [employer].
[2018-05-17 16:02] VITALS: BP 112/67; PULSE 64; TEMP 98; O2SAT 97
--- NOTE | 2018-05-17 16:54 | CP.PCM.DIS ---
<Lashay Bender - Last Filed: 05/17/18 16:50> Provider - Provider Date of Admission: 05/16/18 17:01 Attending physician: Jeffrey Keenan DO Primary care physician: Anish ] Consults: 05/16/18 16:02 General Surgery Consult Stat Comment: Consulting Provider: Yuli Khan Consulting Physician: Yuli Khan Reason for Consult: SBO Time Spent in preparation of Discharge (in minutes): 45 Diagnosis - Discharge Diagnosis (1) Vomiting Status: Resolved Priority: High (2) Constipation Status: Chronic Priority: High (3) SBO (small bowel obstruction) Status: Acute Priority: High Hospital Course - Lab Results Lab Results: Micro Results 05/16/18 13:52 Urine Urine Culture - Final No Growth (<1,000 CFU/ML) Most Recent Lab Values WBC 7.9 K/uL (4.8-10.8) 05/17/18 07:52 RBC 3.82 Mil/uL (3.80-5.20) 05/17/18 07:52 Hgb 12.2 g/dL (11.0-16.0) D 05/17/18 07:52 Hct 35.1 % (34.0-47.0) 05/17/18 07:52 MCV 91.8 fL (81.0-99.0) 05/17/18 07:52 MCH 31.8 pg (27.0-31.0) H 05/17/18 07:52 MCHC 34.7 g/dL (33.0-37.0) 05/17/18 07:52 RDW 13.4 % (11.5-14.5) 05/17/18 07:52 Plt Count 167 K/uL (130-400) 05/17/18 07:52 MPV 8.8 fL (7.2-11.7) 05/17/18 07:52 Neut % (Auto) 72.2 % (50.0-75.0) 05/17/18 07:52 Lymph % (Auto) 17.8 % (20.0-40.0) L 05/17/18 07:52 Braxton % (Auto) 8.7 % (0.0-10.0) 05/17/18 07:52 Eos % (Auto) 0.7 % (0.0-4.0) 05/17/18 07:52 Baso % (Auto) 0.6 % (0.0-2.0) 05/17/18 07:52 Neut # (Auto) 5.7 K/uL (1.8-7.0) 05/17/18 07:52 Lymph # (Auto) 1.4 K/uL (1.0-4.3) 05/17/18 07:52 Braxton # (Auto) 0.7 K/uL (0.0-0.8) 05/17/18 07:52 Eos # (Auto) 0.1 K/uL (0.0-0.7) 05/17/18 07:52 Baso # (Auto) 0.0 K/uL (0.0-0.2) 05/17/18 07:52 Neutrophils % (Manual) 89 % (50-75) H 05/16/18 13:05 Lymphocytes % (Manual) 4 % (20-40) L 05/16/18 13:05 Monocytes % (Manual) 6 % (0-10) 05/16/18 13:05 Eosinophils % (Manual) 1 % (0-4) 05/16/18 13:05 Platelet Estimate Normal (NORMAL) 05/16/18 13:05 RBC Morphology Normal 05/16/18 13:05 Sodium 131 mmol/L (132-148) L 05/17/18 07:52 Potassium 4.1 mmol/L (3.6-5.2) 05/17/18 07:52 Chloride 99 mmol/L (98-107) 05/17/18 07:52 Carbon Dioxide 28 mmol/L (22-30) 05/17/18 07:52 Anion Gap 9 (10-20) L 05/17/18 07:52 BUN 13 mg/dL (7-17) 05/17/18 07:52 Creatinine 0.9 mg/dL (0.7-1.2) 05/17/18 07:52 Est GFR ( Amer) > 60 05/17/18 07:52 Est GFR (Non-Af Amer) 60 05/17/18 07:52 Random Glucose 104 mg/dL (65-105) 05/17/18 07:52 Calcium 8.2 mg/dl (8.6-10.4) L 05/17/18 07:52 Phosphorus 2.9 mg/dL (2.5-4.5) 05/17/18 07:52 Magnesium 1.9 mg/dL (1.6-2.3) 05/17/18 07:52 Total Bilirubin 0.9 mg/dL (0.2-1.3) 05/17/18 07:52 AST 26 U/L (14-36) 05/17/18 07:52 ALT 44 U/L (9-52) 05/17/18 07:52 Alkaline Phosphatase 58 U/L (38-126) 05/17/18 07:52 Total Creatine Kinase 49 U/L (30-135) 05/16/18 22:32 CK-MB (Mass) 1.48 ng/mL (0.0-3.38) 05/16/18 22:32 Troponin I < 0.0120 ng/mL (0.00-0.120) 05/16/18 22:32 Total Protein 5.8 g/dL (6.3-8.3) L 05/17/18 07:52 Albumin 3.1 g/dL (3.5-5.0) L D 05/17/18 07:52 Globulin 2.7 gm/dL (2.2-3.9) 05/17/18 07:52 Albumin/Globulin Ratio 1.1 (1.0-2.1) 05/17/18 07:52 Lipase 72 U/L (23-300) 05/16/18 13:05 Urine Color Yellow (YELLOW) 05/16/18 13:52 Urine Clarity Clear (Clear) 05/16/18 13:52 Urine pH 6.0 (5.0-8.0) 05/16/18 13:52 Ur Specific [place] 1.009 (1.003-1.030) 05/16/18 13:52 Urine Protein 2+ mg/dL (NEGATIVE) H 05/16/18 13:52 Urine Glucose (UA) Normal mg/dL (Normal) 05/16/18 13:52 Urine Ketones Negative mg/dL (NEGATIVE) 05/16/18 13:52 Urine Blood Negative (NEGATIVE) 05/16/18 13:52 Urine Nitrate Negative (NEGATIVE) 05/16/18 13:52 Urine Bilirubin Negative (NEGATIVE) 12/12/18 13:52 Urine Urobilinogen Normal mg/dL (0.2-1.0) 05/16/18 13:52 Ur Leukocyte Esterase Trace Morteza/uL (Negative) 05/16/18 13:52 Urine WBC (Auto) 3 /hpf (0-5) 05/16/18 13:52 Urine RBC (Auto) 1 /hpf (0-3) 05/16/18 13:52 Ur Squamous Epith Cells < 1 /hpf (0-5) 05/16/18 13:52 Urine Bacteria Rare (<OCC) 05/16/18 13:52 - Hospital Course Hospital Course: Patient is an 82 yo female with a history of HTN, HLD, GERD, and MS in 1992 who presents with vomiting and belching. Patient states that she started vomiting last night. She vomited a total of 4 times, last time this morning. It was non-bloody. She denies being around sick contacts or doing/eating anything unusual yesterday. She took Pepto-Bismol with minimal relief. She ate tuna and crackers after onset of vomiting but then subsequently vomited afterwards. Patient has not eaten since last night, and she did not take her medications this morning. Patient also complains of constipation. She states she usually does not have a BM daily, but her constipation has been somewhat worse over the last 2 days. She took Colace without relief. She also describes an acid feeling in her throat and the urge to belch. She is also passing a lot of gas. She denies chest pain, shortness of breath, abdominal pain, recent weight change. She has never had a colonoscopy. Small SBO was seen on CT. Her abdomen was benign. Surgery saw patient and did not think she needed an NGT. She was given IVF. Patient was given Miralax and had a BM. Patient did not vomit during her whole hospitalization. She was tolerating a regular diet PO. She did not want a colonoscopy. She was treated with Protonix for her GERD. Upon discharge, patient's vitals were stable. She did not vomit for >36 hours. She had a large BM. Discharge Exam - Head Exam Head Exam: ATRAUMATIC, NORMAL INSPECTION, NORMOCEPHALIC - Additional Findings Additional findings: - Constitutional Appears: Non-toxic, No Acute Distress - Head Exam Head Exam: ATRAUMATIC, NORMAL INSPECTION - Eye Exam Eye Exam: EOMI, Normal appearance, PERRL - ENT Exam ENT Exam: Mucous Membranes Moist, Normal Exam - Neck Exam Neck exam: Positive for: Normal Inspection - Respiratory Exam Respiratory Exam: Clear to Auscultation Bilateral, NORMAL BREATHING PATTERN. absent: Accessory Muscle Use, Wheezes, Respiratory Distress - Cardiovascular Exam Cardiovascular Exam: REGULAR RHYTHM, +S1, +S2. absent: Systolic Murmur - GI/Abdominal Exam GI & Abdominal Exam: Normal Bowel Sounds, Soft, Tenderness (very mild epigastric). absent: Distended, Firm, Guarding, Mass, Rebound, Rigid - Rectal Exam Rectal Exam: Deferred - Extremities Exam Extremities exam: Positive for: normal capillary refill, pedal edema (1+ b/l), pedal pulses present. Negative for: tenderness - Back Exam Back exam: NORMAL INSPECTION. absent: CVA tenderness (L), CVA tenderness (R) - Neurological Exam Neurological exam: Alert, CN II-XII Intact, Oriented x3 - Psychiatric Exam Psychiatric exam: Normal Affect, Normal Mood - Skin Skin Exam: Dry, Intact, Normal Color, Warm Discharge Plan - Discharge Medications Prescriptions: Pantoprazole [Protonix] 40 mg PO DAILY #30 ect RX: Polyethylene Glycol 3350 [Miralax] 17 gm PO DAILY #30 packet RX: Simethicone [Mylicon Chew Tab] 80 mg PO DAILY #30 ctb - Follow Up Plan Condition: IMPROVED Disposition: HOME/ ROUTINE Patient education suggested?: Yes Instructions: Polyethylene Glycol 3350, Heart Healthy Diet, Small Bowel Obstruction (DC), Pantoprazole, Simethicone Additional Instructions: Please follow-up with your primary care physician, Dr. Oconnell, within 3-5 days of discharge. We recommend a colonoscopy as an outpatient, which Dr. Oconnell could set-up for you. Increase fiber in your diet. You may take Simethicone for gas. You may take pantoprazole 40 mg daily fro acid reflux. You may take Miralax for constipation. All of these medications can be over the counter. If symptoms recur, please return to the nearest emergency room. Referrals: Lizz Oconnell MD [Staff Provider] - <Jeffrey Keenan - Last Filed: 05/17/18 18:10> Provider - Provider Date of Admission: 05/16/18 17:01 Attending physician: Jeffrey Keenan DO Consults: 05/16/18 16:02 General Surgery Consult Stat Comment: Consulting Provider: Yuli Khan Consulting Physician: Yuli Khan Reason for Consult: SBO Hospital Course - Lab Results Lab Results: Micro Results 05/16/18 13:52 Urine Urine Culture - Final No Growth (<1,000 CFU/ML) Most Recent Lab Values WBC 7.9 K/uL (4.8-10.8) 05/17/18 07:52 RBC 3.82 Mil/uL (3.80-5.20) 05/17/18 07:52 Hgb 12.2 g/dL (11.0-16.0) D 05/17/18 07:52 Hct 35.1 % (34.0-47.0) 05/17/18 07:52 MCV 91.8 fL (81.0-99.0) 05/17/18 07:52 MCH 31.8 pg (27.0-31.0) H 05/17/18 07:52 MCHC 34.7 g/dL (33.0-37.0) 05/17/18 07:52 RDW 13.4 % (11.5-14.5) 05/17/18 07:52 Plt Count 167 K/uL (130-400) 05/17/18 07:52 MPV 8.8 fL (7.2-11.7) 05/17/18 07:52 Neut % (Auto) 72.2 % (50.0-75.0) 05/17/18 07:52 Lymph % (Auto) 17.8 % (20.0-40.0) L 05/17/18 07:52 Braxton % (Auto) 8.7 % (0.0-10.0) 05/17/18 07:52 Eos % (Auto) 0.7 % (0.0-4.0) 05/17/18 07:52 Baso % (Auto) 0.6 % (0.0-2.0) 05/17/18 07:52 Neut # (Auto) 5.7 K/uL (1.8-7.0) 05/17/18 07:52 Lymph # (Auto) 1.4 K/uL (1.0-4.3) 05/17/18 07:52 Braxton # (Auto) 0.7 K/uL (0.0-0.8) 05/17/18 07:52 Eos # (Auto) 0.1 K/uL (0.0-0.7) 05/17/18 07:52 Baso # (Auto) 0.0 K/uL (0.0-0.2) 05/17/18 07:52 Neutrophils % (Manual) 89 % (50-75) H 05/16/18 13:05 Lymphocytes % (Manual) 4 % (20-40) L 05/16/18 13:05 Monocytes % (Manual) 6 % (0-10) 05/16/18 13:05 Eosinophils % (Manual) 1 % (0-4) 05/16/18 13:05 Platelet Estimate Normal (NORMAL) 05/16/18 13:05 RBC Morphology Normal 05/16/18 13:05 Sodium 131 mmol/L (132-148) L 05/17/18 07:52 Potassium 4.1 mmol/L (3.6-5.2) 05/17/18 07:52 Chloride 99 mmol/L (98-107) 05/17/18 07:52 Carbon Dioxide 28 mmol/L (22-30) 05/17/18 07:52 Anion Gap 9 (10-20) L 05/17/18 07:52 BUN 13 mg/dL (7-17) 05/17/18 07:52 Creatinine 0.9 mg/dL (0.7-1.2) 05/17/18 07:52 Est GFR ( Amer) > 60 05/17/18 07:52 Est GFR (Non-Af Amer) 60 05/17/18 07:52 Random Glucose 104 mg/dL (65-105) 05/17/18 07:52 Calcium 8.2 mg/dl (8.6-10.4) L 05/17/18 07:52 Phosphorus 2.9 mg/dL (2.5-4.5) 05/17/18 07:52 Magnesium 1.9 mg/dL (1.6-2.3) 05/17/18 07:52 Total Bilirubin 0.9 mg/dL (0.2-1.3) 05/17/18 07:52 AST 26 U/L (14-36) 05/17/18 07:52 ALT 44 U/L (9-52) 05/17/18 07:52 Alkaline Phosphatase 58 U/L (38-126) 05/17/18 07:52 Total Creatine Kinase 49 U/L (30-135) 05/16/18 22:32 CK-MB (Mass) 1.48 ng/mL (0.0-3.38) 05/16/18 22:32 Troponin I < 0.0120 ng/mL (0.00-0.120) 05/16/18 22:32 Total Protein 5.8 g/dL (6.3-8.3) L 05/17/18 07:52 Albumin 3.1 g/dL (3.5-5.0) L D 05/17/18 07:52 Globulin 2.7 gm/dL (2.2-3.9) 05/17/18 07:52 Albumin/Globulin Ratio 1.1 (1.0-2.1) 05/17/18 07:52 Lipase 72 U/L (23-300) 05/16/18 13:05 Urine Color Yellow (YELLOW) 05/16/18 13:52 Urine Clarity Clear (Clear) 05/16/18 13:52 Urine pH 6.0 (5.0-8.0) 05/16/18 13:52 Ur Specific [place] 1.009 (1.003-1.030) 05/16/18 13:52 Urine Protein 2+ mg/dL (NEGATIVE) H 05/16/18 13:52 Urine Glucose (UA) Normal mg/dL (Normal) 05/16/18 13:52 Urine Ketones Negative mg/dL (NEGATIVE) 05/16/18 13:52 Urine Blood Negative (NEGATIVE) 05/16/18 13:52 Urine Nitrate Negative (NEGATIVE) 05/16/18 13:52 Urine Bilirubin Negative (NEGATIVE) 05/16/18 13:52 Urine Urobilinogen Normal mg/dL (0.2-1.0) 05/16/18 13:52 Ur Leukocyte Esterase Trace Morteza/uL (Negative) 05/16/18 13:52 Urine WBC (Auto) 3 /hpf (0-5) 05/16/18 13:52 Urine RBC (Auto) 1 /hpf (0-3) 05/16/18 13:52 Ur Squamous Epith Cells < 1 /hpf (0-5) 05/16/18 13:52 Urine Bacteria Rare (<OCC) 05/16/18 13:52 Attending/Attestation - Attestation I have personally seen and examined this patient.: Yes I have fully participated in the care of the patient.: Yes I have reviewed all pertinent clinical information, including history, physical exam and plan: Yes Notes (Text): 05/17/18 18:08 Medical attending: Patient was seen and examined by me. Agree with the above note by the medical parasitologist The patient had a BM last night and afterwards reported feeling much better She tolerated a diet also without vommitting. The patient also is passing gas she says Family member present at bedside as well patient looks well, lab work is stable. Will discharge today, we advised patient to follow up with her PMD and also in the future I explained to the patient and family that should this happen again then will need to strongly consider colonscopy because she has never had one before Jeffrey Keenan
--- NOTE | 2018-05-18 09:11 | CP.PCM.PN ---
Subjective - Date & Time of Evaluation Date of Evaluation: 05/18/18 Time of Evaluation: 09:20 - Subjective Subjective: Surgery Progress note. Dr. Khan service Pt seen and examined at bedside. No acute events overnight. no N/V/D. Does report having bowel movement last night. No further complaints. Objective - Vital Signs/Intake and Output Vital Signs (last 24 hours): Temp Pulse Resp BP Pulse Ox 98 F 64 20 112/67 97 05/17/18 15:00 05/17/18 15:00 05/17/18 15:00 05/17/18 15:00 05/17/18 15:00 - Labs Labs: 05/17/18 07:52 05/17/18 07:52 - Constitutional Appears: Well, Non-toxic, No Acute Distress - Head Exam Head Exam: ATRAUMATIC, NORMAL INSPECTION, NORMOCEPHALIC - Eye Exam Eye Exam: EOMI, Normal appearance - ENT Exam ENT Exam: Mucous Membranes Moist - Respiratory Exam Respiratory Exam: NORMAL BREATHING PATTERN. absent: Accessory Muscle Use, Respiratory Distress - GI/Abdominal Exam GI & Abdominal Exam: Soft. absent: Distended, Guarding, Rigid, Tenderness, Rebound - Extremities Exam Extremities Exam: Normal Inspection - Neurological Exam Neurological Exam: Alert, Awake, Oriented x3 - Psychiatric Exam Psychiatric exam: Normal Affect, Normal Mood - Skin Skin Exam: Dry, Intact, Normal Color, Warm Assessment and Plan - Assessment and Plan (Free Text) Assessment: 82yo F with abdominal pain. Possible SBO, resolved. Plan: - Advance diet as tolerated - continue to monitor bowel function - Cleared for discharge from surgical standpoint Further recs as per Dr. Bill Bailey PGY2 Surgery
[2018-05-18] MEDS ORDERED: POLYETHYLENE GLYCOL 3350 17 GM/Dose PACKET PO SCH (10:00)
[2018-05-18] MEDS ORDERED: Pneumococcal 23-Valent Vaccine IM ONE (10:00)
== END 2018-05-17 18:13 | disposition home or self-care (01) | DRG 389 ==
LOC: C.ER 12:08 → C.9E 17:01 → C.6T 18:00
PROVIDERS: ADMIT Hospitalist; ATTEND Hospitalist
DX: K56.609 Unspecified intestinal obstruction, unspecified as to partial versus complete obstruction (principal); K57.30 Diverticulosis of large intestine without perforation or abscess without bleeding; N13.30 Unspecified hydronephrosis; N26.1 Atrophy of kidney (terminal); K59.09 Other constipation; K21.9 Gastro-esophageal reflux disease without esophagitis; I10 Essential (primary) hypertension; I71.4 Abdominal aortic aneurysm, without rupture; E03.9 Hypothyroidism, unspecified; E78.00 Pure hypercholesterolemia, unspecified; E78.5 Hyperlipidemia, unspecified; I25.2 Old myocardial infarction; Z87.891 Personal history of nicotine dependence